=== PATIENT | female | born 2000 | race Caucasian/White ===

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

== ENCOUNTER 2021-06-12 18:25 | Outpatient (CLI) | payer MEDICAID, SELFPAY ==
[2021-06-12] VITALS (7 sets, daily range): BP systolic 125–148; BP diastolic 75–90; PULSE 52–84; TEMP 36.7; O2SAT 100; BMI 46.5
[2021-06-12] MEDS: Lactated Ringers 1,000 ML 999 ML IV (19:29)
[2021-06-12 19:42] LABS: Hematocrit 33.2 % (37-47); Hemoglobin 10.9 g/dL (12.0-15.0); Mean Corp Hgb Conc 32.8 g/dL (32-36); Mean Corpuscular Hgb 28.5 pg (27.0-32.0); Mean Corpuscular Volume 86.7 fL (81-99); Mean Platelet Vol. 11.1 fl (6.2-12.0); Platelet Count 217 K/mm3 (150-450); RBC Distribution Width SD 46.1 fl (35.1-43.9); Red Blood Count 3.83 M/mm3 (4.2-5.4); White Blood Count 11.8 K/mm3 (4.4-11.0)
[2021-06-12] MEDS: Acetaminophen 500 MG Tablet 1000 MG PO (19:43)
[2021-06-12 20:04] LABS: Protein, Urine (Random) 25.4 mg/dL (<11.9); Protein:Creat Ratio 149 mg/g CRE (0-200)
[2021-06-12 20:05] LABS: ALB/GLOB Ratio 0.5 RATIO (0.9-2.4); AST(SGOT) 8 U/L (15-37); Alanine Aminotransfer ALT/SGPT 12 U/L (13-56); Albumin, Serum 2.3 g/dL (3.2-5.0); Alkaline Phosphatase 166 U/L (45-117); Anion Gap 8 (5-15); BUN 7 mg/dL (7-18); BUN/Creat Ratio 16.7 RATIO (10-20); Calcium,Total 8.4 mg/dL (8.5-10.1); Chloride 110 mmol/L (98-107); Creatinine, Serum 0.42 mg/dL (0.55-1.02); EST Glomerular Filtration Rate 204 mL/min (>60); Est Glom Filt Rate - Afr Amer 247 mL/min (>60); Estimated Creatinine Clearance 176.75 ml/min; Globulin 4.2 g/dL (2.2-4.2); Glucose 75 mg/dL (74-106); Potassium 3.7 mmol/L (3.5-5.1); Protein, Total 6.5 g/dL (6.4-8.2); Sodium Level 137 mmol/L (136-145)
--- NOTE | 2021-06-12 20:24 | OB.TRI.NOTE ---
HPI - General HPI Narrative LISA MALDONADO, is a 21 F who presents for ELLISON and vision changes that she has had off and on for weeks. ELLISON is 4/10 and she has not taken anything for it. Vision changes have resolved. No RUQ pain or epigastric pain. No N/V. No ctx, vb, lof. Good FM. Maternal Data Information JOSR Calculator Estimated Delivery Date Method Current WG Current Estimate 06/30/21 LMP (Certain) 37w 3d PFSH PFSH Home Medications [id number] [] 1 tab PO DAILY 12/03/20 [History Last Taken 06/12/21 09:00] aspirin 81 mg PO DAILY 06/12/21 [History Last Taken 06/12/21 12:00] famotidine [Pepcid AC] 20 mg PO BID 06/12/21 [History Last Taken 06/12/21 12:00] Allergy/AdvReac Type Severity Reaction Status Date / Time No Known Allergies Allergy Verified 06/12/21 19:33 Social History (Updated 12/31/20 @ 23:[address] Leobardo Wellington, DO) Smoking Status: Current some day smoker tobacco type: e-cigarettes substance use type: does not use Physical Exam Const alert and no apparent distress General Appearance: comfortable Resp normal respiratory effort GI soft to palpation and non-tender Extremity Extremity Narrative: 2+ patellar reflexes NST FHR Rate Baby A Baseline: 140 Variability:: Moderate Accelerations:: 15 x 15 Decelerations:: None NST Reactive:: Yes FHR Category:: Category I Uterine Activity:: no ctx's Assessment & Plan (1) 37 weeks gestation of : PLAN: - ELLISON is mild and has been off and on for weeks. Tylenol given and fluid hydration with improvement - Vision changes have resolved - Pre e labs WNL - No concern for pre e at this time - BP's are normal but she did have 1 mild range BP - Discussed concern for developing gHTN and reasons to call - Will have office call her in 2 days to check in (2) Headache in :
== END 2021-06-12 23:59 | disposition home or self-care (01) ==
LOC: WPOUT 18:32 → WP 18:32
PROVIDERS: Visit Provider Obstetrics & Gynecology
DX: O99.333 Smoking (tobacco) complicating pregnancy, third trimester (principal); R51.9 Headache, unspecified; F17.290 Nicotine dependence, other tobacco product, uncomplicated; Z3A.37 37 weeks gestation of pregnancy
CPT/HCPCS: 96360; 59025; 59050; 80053; 82570; 84156; 85027; 99218; J7120; G0378

== ENCOUNTER 2021-06-23 13:30 | Outpatient (CLI) | payer MEDICAID, SELFPAY ==
[2021-06-23 13:34] VITALS: BMI 44.9
[2021-06-23 13:50] VITALS: BP 129/79; PULSE 101; TEMP 36.2
[2021-06-23 13:54] VITALS: PULSE 113; O2SAT 99
[2021-06-23 13:59] VITALS: PULSE 87; O2SAT 100
[2021-06-23 14:34] LABS: ROM Internal Control Test YES-OK TO RESULT pt. (Internal QC); ROM Patient Test Negative (Negative)
[2021-07-01] VITALS (21 sets, daily range): BP systolic 115–163; BP diastolic 67–103; PULSE 77–118; TEMP 36.1–36.2; O2SAT 90–100
--- NOTE | 2021-07-23 15:59 | OB.TRI.NOTE ---
HPI - General HPI Narrative LISA MALDONADO, is a 21 F who presents Maternal Data Information JOSR Calculator Estimated Delivery Date Method Current WG Current Estimate 06/30/21 LMP (Certain) 43w 2d Gestational age: 39 weeks [facility] Medical History (Updated 07/23/21 @ 15:[address] Felicia Toussaint MD) Anxiety Depression History of anxiety History of depression Obesity affecting Home Medications [id number]-[id number] [] 1 tab PO DAILY 12/03/20 [History Last Taken 1 Week Ago ~06/24/21] aspirin 81 mg PO DAILY 06/12/21 [History Last Taken 1 Week Ago ~06/24/21] famotidine [Pepcid AC] 20 mg PO BID 06/12/21 [History Last Taken 1 Week Ago ~06/24/21] Allergy/AdvReac Type Severity Reaction Status Date / Time No Known Allergies Allergy Verified 07/01/21 05:57 Social History (Updated 12/31/20 @ 23:[address] Leobardo Wellington, DO) Smoking Status: Current every day smoker tobacco type: e-cigarettes substance use type: does not use History Elective abortions Hx Para 0 Spontaneous abortions Hx # Term Pregnancies Ectopic pregnancies Hx # Pregnancies Multiple births # of living children Assessment & Plan (1) False labor: PLAN: NST on OB until with r/o labor No strip available to chart
== END 2021-06-23 23:59 | disposition home or self-care (01) ==
LOC: WPOUT 13:33 → WP 13:34
PROVIDERS: Visit Provider Obstetrics & Gynecology
DX: O99.344 Other mental disorders complicating childbirth (principal); O99.214 Obesity complicating childbirth; O47.1 False labor at or after 37 completed weeks of gestation; F41.8 Other specified anxiety disorders; Z3A.39 39 weeks gestation of pregnancy; O99.334 Smoking (tobacco) complicating childbirth; F17.290 Nicotine dependence, other tobacco product, uncomplicated; Z79.82 Long term (current) use of aspirin; Z79.899 Other long term (current) drug therapy
CPT/HCPCS: 59025; 59050; 84112; 99218; G0378

== ENCOUNTER 2021-07-01 06:00 | Inpatient (IN) | payer MEDICAID, SELFPAY ==
[2021-07-01] VITALS (26 sets, daily range): BP systolic 102–138; BP diastolic 59–93; PULSE 77–110; RESP 16–18; TEMP 35.7–36.6; O2SAT 97–100; BMI 44.9
--- NOTE | 2021-07-01 06:06 | PCM.HP.OB ---
HPI - General HPI Narrative LISA MALDONADO, is a 21 F at 40.1 weeks gestation who presents to triage with contractions. She started having contractions yesterday and feels that have gotten closer together and more painful. Denies any loss of fluid or vaginal bleeding. Positive movement. complicated by Covid -19 positive (1st trimester), obesity, anemia and GBS positive status. She has a history of anxiety and depression. Maternal Data Information JOSR Calculator Estimated Delivery Date Method Current WG Current Estimate 06/30/21 LMP (Certain) 40w 1d PFSH PFSH Home Medications [id number] [] 1 tab PO DAILY 12/03/20 [History Last Taken 1 Week Ago ~06/24/21] aspirin 81 mg PO DAILY 06/12/21 [History Last Taken 1 Week Ago ~06/24/21] famotidine [Pepcid AC] 20 mg PO BID 06/12/21 [History Last Taken 1 Week Ago ~06/24/21] Allergy/AdvReac Type Severity Reaction Status Date / Time No Known Allergies Allergy Verified 07/01/21 05:57 Social History (Updated 12/31/20 @ 23:[address] Leobardo Wellington, DO) Smoking Status: Current some day smoker tobacco type: e-cigarettes substance use type: does not use NST FHR Rate Baby A Baseline: 130 Variability:: Moderate Accelerations:: 15 x 15 Decelerations:: None FHR Category:: Category I Uterine Activity:: TOCO- 2-3 min ROS Eyes Eyes: Denies blurry vision, change in vision or spots in vision ENT HEENT: Denies dizziness or headache(s) Cardiovascular Cardiovascular: Denies abdominal pain, chest pain or dyspnea Respiratory/Chest Respiratory/Chest: Denies cough, dyspnea, shortness of breath at rest or shortness of breath with exertion Gastrointestinal Gastrointestinal: Denies abdominal pain, diarrhea or vomiting Genitourinary Genitourinary: Denies change in urinary stream, difficulty urinating or dysuria Musculoskeletal Musculoskeletal: Reports none Integumentary Integumentary: Denies rash Neurologic Neurologic: Denies dizziness, headache(s), memory loss or weakness Psychiatric Psychiatric: Reports none Vital Signs Vital Signs Vital Signs: Weight Weight: 261 lb 6.4 oz Body Mass Index (BMI) 44.9 Physical Exam Const alert, oriented x3 and no apparent distress General Appearance: cooperative Orientation / Consciousness: awake Exam Limitations: no limitations HEENT normocephalic Head and Scalp: normal to inspection Eyes General Eye: normal appearance of both eyes Neck full ROM and no lymphadenopathy Lymph Lymphatic: no lymphadenopathy noted Chest inspection of chest normal Resp normal respiratory effort, normal air movement and clear to auscultation bilaterally Effort and Inspection: able to speak in complete sentences and symmetric chest movement Cardio regular rate and regular rhythm GI normal to inspection, nondistended, normoactive bowel sounds Manual OB Exam: dilated 4, effaced 90 and station -1 Back/Spine normal ROM Extremity full ROM and no calf tenderness Skin no rashes or lesions noted General Skin Exam: no breakdown Neuro oriented x3 and CN's II-XII intact bilaterally Psych mental status grossly normal and thought process normal Labs Labs Labs: Hct 33.2 % (37-47) L Hgb 10.9 g/dL (12.0-15.0) L A+ Rubella- immune HB- neg HC- neg RPR- NR HIV- NR GC/CH- neg GBS positive Assessment & Plan (1) 40 weeks gestation of : (2) Spontaneous onset of labor: (3) Anemia affecting : QUALIFIERS: Trimester: second trimester Qualified Code(s): O99.012 - Anemia complicating , second trimester (4) Obesity affecting : QUALIFIERS: Trimester: unspecified trimester Qualified Code(s): O99.210 - Obesity complicating , unspecified trimester (5) History of depression: (6) History of anxiety: (7) Positive GBS test: PLAN: CE /-1 Admit to labor and delivery Routine labs GBS positive- Start IV and start PCN 5 million units IV x 1 then PCN 3 million units IV every 4 hours until delivery Epidural when indicated Dr. Jurado notified and is collaborating physician
[2021-07-01] MEDS: Lactated Ringers 500 ML 999 ML IV ×2 (06:29→11:00)
[2021-07-01 06:56] LABS: Absolute Lymphocyte Count 2.35 X10^3/uL (0.83-4.51); Absolute Neutrophil Count 8.7 X10^3/uL (2.0-7.7); Basophil# 0.04 X10^3/uL; Basophil% 0.3 % (0-1); Eosinophil# 0.12 X10^3/uL; Hematocrit 36.2 % (37-47); Hemoglobin 12.1 g/dL (12.0-15.0); Lymphocyte # 2.35 X10^3/ul (0.83-4.51); Lymphocyte % 19.9 % (19-41); Mean Corp Hgb Conc 33.4 g/dL (32-36); Mean Corpuscular Hgb 28.2 pg (27.0-32.0); Mean Corpuscular Volume 84.4 fL (81-99); Monocyte# 0.56 X10^3/uL; Monocyte% 4.7 % (0-10); NRBC Flagged by Analyzer 0 % (0-5); Neutrophil # 8.69 X10^3/uL (2.7-7.7); Neutrophil % 73.7 % (47-70); Platelet Count 250 K/mm3 (150-450); RBC Distribution Width CV 15.7 % (11.6-14.6); Red Blood Count 4.29 M/mm3 (4.2-5.4); White Blood Count 11.8 K/mm3 (4.4-11.0)
[2021-07-01] MEDS: Lactated Ringers 1,000 ML 200 ML IV (07:00)
[2021-07-01] MEDS: fentaNYL-bupivacaine (epidural) 100 ML BAG EPIDURAL (07:50)
--- NOTE | 2021-07-01 08:33 | PCM.PN.OB ---
Subjective Subjective Comfortable in bed with epidural. FOB at bedside. Objective Data Objective Data Vital Signs: Weight: 261 lb 6.4 oz Body Mass Index (BMI) 44.9 Intake & Output: Intake and Output for Last 24 Hours 06/29/21 06/30/21 07/01/21 23:59 23:59 23:59 Intake Total 605 / 605 Balance 605 / 605 Lab / Micro Data Result Diagrams: 07/01/21 06:29 Labs: Laboratory Results - last 24 hr 07/01/21 06:29: WBC 11.8 H, RBC 4.29, Hgb 12.1, Hct 36.2 L, MCV 84.4, MCH 28.2, MCHC 33.4, RDW Std Deviation 48.0 H, RDW Coeff of Sully 15.7 H, Plt Count 250, MPV 11.0, Immature Gran % (Auto) 0.400, Neut % (Auto) 73.7 H, Lymph % (Auto) 19.9, [place] % (Auto) 4.7, Eos % (Auto) 1.0, Baso % (Auto) 0.3, Absolute Neuts (auto) 8.7 H, Absolute Lymphs (auto) 2.35, Nucleated RBC % 0 07/01/21 06:29: Blood Type A POSITIVE, Antibody Screen NEGATIVE Micro: Microbiology 07/01/21 06:15 Nasal Secretion SARS-CoV-2 Antigen (Rapid) - Final Physical Exam Manual OB Exam: dilated 4cm, effaced 80%, station -1 and other vertex presentation. AROM for moderate amount of meconium stained fluid. IUPC placed and tolerated well. NST FHR Rate Baby A Baseline: 135 Variability:: Moderate Accelerations:: 15 x 15 Decelerations:: None FHR Category:: Category I Uterine Activity:: Unable to see on monitor and difficult to palpate due to body habitus Assessment & Plan (1) Positive GBS test: (2) History of anxiety: (3) History of depression: (4) Obesity affecting : QUALIFIERS: Trimester: unspecified trimester Qualified Code(s): O99.210 - Obesity complicating , unspecified trimester (5) Anemia affecting : QUALIFIERS: Trimester: second trimester Qualified Code(s): O99.012 - Anemia complicating , second trimester (6) Spontaneous onset of labor: (7) 40 weeks gestation of : (8) Elevated blood pressure affecting , antepartum: PLAN: 1) Category 1 FHT 2) Epidural for pain management 3) Unable to palpate contractions, AROM and IUPC placed after patient consent. Will reevaluate in an hour if good labor pattern. If not, discussed pitocin augmentation. 4) Positional changes 5) collaborative physician and notified of patient status.
[2021-07-01] MEDS: Oxytocin 30 units/NS 500 ml 30 UNITS/500 ML IV.SOLN IV (09:42)
[2021-07-01 09:44] LABS: ALB/GLOB Ratio 0.6 RATIO (0.9-2.4); AST(SGOT) 11 U/L (15-37); Alanine Aminotransfer ALT/SGPT 10 U/L (13-56); Albumin, Serum 2.4 g/dL (3.2-5.0); Alkaline Phosphatase 184 U/L (45-117); Anion Gap 7 (5-15); BUN 10 mg/dL (7-18); BUN/Creat Ratio 17.5 RATIO (10-20); Calcium,Total 8.4 mg/dL (8.5-10.1); Chloride 109 mmol/L (98-107); Creatinine, Serum 0.57 mg/dL (0.55-1.02); EST Glomerular Filtration Rate 143 mL/min (>60); Est Glom Filt Rate - Afr Amer 173 mL/min (>60); Estimated Creatinine Clearance 135.95 ml/min; Globulin 4.2 g/dL (2.2-4.2); Glucose 76 mg/dL (74-106); Protein, Total 6.6 g/dL (6.4-8.2); Sodium Level 137 mmol/L (136-145); Uric Acid 4.3 mg/dL (2.6-6.0)
[2021-07-01 09:48] LABS: Protein, Urine (Random) 27.2 mg/dL (<11.9); Protein:Creat Ratio 231 mg/g CRE (0-200)
[2021-07-01] MEDS: Penicillin G 3,000,000 Units 50 ML 100 UNITS IV (10:38)
[2021-07-01] MEDS: Oxytocin 30 units/NS 500 ml 30 UNITS/500 ML IV.SOLN 334 UNITS IV (12:16)
--- NOTE | 2021-07-01 12:34 | OP.PCM_ITS ---
Maternal Data Information JOSR Calculator Estimated Delivery Date Method Current WG Current Estimate 06/30/21 LMP (Certain) 40w 1d Vaginal Delivery Maternal Presentation Maternal Presentation: Active Labor Operative Information Date of Procedure: 07/01/21 Pre-Operative Diagnosis: Active Labor Post-Operative Diagnosis: Surgery / Procedure Performed: Spontaneous Vaginal Delivery Type of Anesthesia: Epidural Estimated Blood Loss: 500 ml Time of Delivery: 12:12 Findings Description of Procedure: Progressed to complete with strong urge to push. Epidural for pain management. Respiratory and superintendent operations division called to delivery for meconium stained fluid. of viable male infant over 1st degree perineal laceration. APGARS 8,9. head delivered with body immediately forthcoming. CANx1 and delivered through. Mouth and nares suctioned for secretions. Placed on maternal abdomen, strong cry. Pitocin started for active 3rd stage management. Cord clamped and cut after pulsations ceased. placed on warmer for evaluation by superintendent operations division. Placenta delivered intact with 3 vessel cord. Perineum inspected and revealed first degree perineal laceration. Repaired with epidural analgesia and 3.0 vicryl rapide. Fundus firm, hemostasis achieved. Mom and baby stable, family bonding well. Planning to bottle feed. notified of patient delivery. Presentation: Vertex and BUSHRA Amniotic Membrane Rupture Type: Artificial Amniotic Fluid Description: Thick meconium Placental Delivery Description: Spontaneous Placenta Disposition: [facility] Cord Vessel Description: 3 Vessels Cord Entanglement: None and Around neck x 1, loose Nuchal Cord Compression: Without compression Infant A Gender: Male (1 minute): 8 (5 minute): 9 Delayed Cord Clamping: Yes Post Vaginal Delivery Medications Given After Delivery: IV Pitocin Laceration: 1st degree Complication Complications: None
--- NOTE | 2021-07-01 15:37 | NURSING ---
1500 report received from bozena rn; assessment done; pt up oob up to chair pt gait steady; pt moved to room 3
--- NOTE | 2021-07-01 18:12 | NURSING ---
1750 pt up to try and void; pt unable to void; pt encouraged to drink water and will try again at 18:30; pt denies urge to void
[2021-07-02 03:51] VITALS: BP 111/60; PULSE 97; RESP 18; TEMP 36.6; O2SAT 97
[2021-07-02] MEDS: Acetaminophen 500 MG Tablet 1000 MG PO (03:51)
[2021-07-02 06:16] LABS: Hematocrit 30.3 % (37-47); Mean Corpuscular Volume 87.8 fL (81-99); Platelet Count 180 K/mm3 (150-450); RBC Distribution Width CV 15.9 % (11.6-14.6); RBC Distribution Width SD 50.9 fl (35.1-43.9); Red Blood Count 3.45 M/mm3 (4.2-5.4)
[2021-07-02 08:45] VITALS: BP 104/56; PULSE 81; RESP 16; TEMP 36.1
--- NOTE | 2021-07-02 13:22 | PCM.PN.OB ---
Subjective Subjective Denies complaints Objective Data Objective Data Vital Signs: Vital Signs Temp Pulse Resp BP Pulse Ox 97 F L 81 16 104/56 L 97 07/02/21 08:45 07/02/21 08:45 07/02/21 08:45 07/02/21 08:45 07/02/21 03:51 Oxygen Delivery Method Room Air Weight: 261 lb 6.4 oz Body Mass Index (BMI) 44.9 Intake & Output: Intake and Output for Last 24 Hours 06/30/21 07/01/21 07/02/21 23:59 23:59 23:59 Intake Total 2608.89 / 2608.89 Output Total 600 / 600 Balance / Lab / Micro Data Result Diagrams: 07/02/21 06:00 07/01/21 08:55 Labs: Laboratory Results - last 24 hr 07/02/21 06:00: WBC 13.0 H, RBC 3.45 L, Hgb 10.0 L, Hct 30.3 L, MCV 87.8, MCH 29.0, MCHC 33.0, RDW Std Deviation 50.9 H, RDW Coeff of Sully 15.9 H, Plt Count 180, MPV 11.0 Micro: Microbiology 07/01/21 06:15 Nasal Secretion SARS-CoV-2 Antigen (Rapid) - Final Physical Exam Const alert, oriented x3 and no apparent distress HEENT normocephalic GI soft to palpation, non-tender and non-distended GI Narrative: fundus firm, mid & below umbilicus Extremity normal to inspection and no calf tenderness Assessment & Plan (1) 40 weeks gestation of : COMMENT: PPD#1 PLAN: Routine care
--- NOTE | 2021-07-02 13:26 | PCM.DC ---
Discharge Instructions Diet Discharge Diet: No restrictions Activity Discharge Activity: May Shower May resume sexual activity in: 6 weeks Weight Bearing Status: Weight bearing as tolerated Dressing / Incision Call your doctor if you observe: Fever of 101 or Higher, Coldness, Increased Pain, Change in Color, Inability to urinate, Inability to have a bowel movement, Using more than 1 pad per hour, Shortness of breath, Dizziness, Fainting spells, Chest pain, Increased palpitations (irregular heartbeat), Calf discomfort and Uncontrolled pain Follow Up Care Please Follow Up With: Felicia Toussaint MD When: Follow up in 1 and 6 weeks for visits. Test Results: Test results from this visit will be discussed in further detail at your follow-up appointment, if applicable. Discharge Plan Admission Admit Date/Time: 07/01/21 06:00 Primary Reason for Your Visit: Vaginal delivery Attending Provider: Nat Moore Primary Care Provider: Care Physician,Katherine Primary Discharge Orders/Prescriptions Prescriptions: No Action 1 mg Tablet 1 tab PO DAILY RF: 0 famotidine [Pepcid AC] 20 mg Tablet 20 mg PO BID RF: 0 aspirin 81 mg Capsule 81 mg PO DAILY RF: 0 Referrals / Follow Up: Care Physician,No Primary [Primary Care Provider] - Disposition Disposition (needs filled in before D/C Order can be placed): Home, Self Care
[2021-07-02 15:49] VITALS: BP 138/88; PULSE 88; RESP 16; TEMP 36.1
== END 2021-07-02 16:08 | disposition home or self-care (01) | DRG 560 ==
LOC: WPOUT 06:08 → WP 06:08
PROVIDERS: Advanced Practice Midwife; Admitting Provider Advanced Practice Midwife; Referring Provider Advanced Practice Midwife; Visit Provider Advanced Practice Midwife
DX: O99.02 Anemia complicating childbirth (principal); Z37.0 Single live birth; E66.9 Obesity, unspecified; F17.290 Nicotine dependence, other tobacco product, uncomplicated; O77.0 Labor and delivery complicated by meconium in amniotic fluid; O99.214 Obesity complicating childbirth; O99.824 Streptococcus B carrier state complicating childbirth; O99.334 Smoking (tobacco) complicating childbirth; O69.81X0 Labor and delivery complicated by cord around neck, without compression, not applicable or unspecified; O70.0 First degree perineal laceration during delivery; Z3A.40 40 weeks gestation of pregnancy; Z79.82 Long term (current) use of aspirin; Z86.16 Personal history of COVID-19
CPT/HCPCS: 59025; 59050; 80053; 82570; 84156; 84550; 85025; 85027; 86850; 86900; 86901; 87426; 99218; 99406; J7120; G0378

== ENCOUNTER 2022-11-05 09:20 | Inpatient (IN) | payer MEDICAID, SELFPAY ==
[2022-11-05] VITALS (43 sets, daily range): BP systolic 85–139; BP diastolic 47–95; PULSE 30–113; RESP 20; TEMP 36.1–37.2; O2SAT 81–100; BMI 45.9
[2022-11-05] MEDS: Lactated Ringers 1,000 ML 50 ML IV (10:18)
[2022-11-05 10:25] LABS: Absolute Lymphocyte Count 1.83 X10^3/uL (0.83-4.51); Absolute Neutrophil Count 11.1 X10^3/uL (2.0-7.7); Basophil# 0.04 X10^3/uL; Basophil% 0.3 % (0-1); Eosinophil# 0.11 X10^3/uL; Eosinophils% 0.8 % (0-5); Hematocrit 35.4 % (37-47); Hemoglobin 11.1 g/dL (12.0-15.0); Lymphocyte # 1.83 X10^3/ul (0.83-4.51); Lymphocyte % 13.3 % (19-41); Mean Corp Hgb Conc 31.4 g/dL (32-36); Mean Corpuscular Hgb 27.3 pg (27.0-32.0); Mean Corpuscular Volume 87.2 fL (81-99); Mean Platelet Vol. 10.9 fl (6.2-12.0); Monocyte# 0.59 X10^3/uL; Monocyte% 4.3 % (0-10); NRBC Flagged by Analyzer 0 % (0-5); Neutrophil # 11.08 X10^3/uL (2.7-7.7); Neutrophil % 80.9 % (47-70); Platelet Count 275 K/mm3 (150-450); RBC Distribution Width CV 14.1 % (11.6-14.6); Red Blood Count 4.06 M/mm3 (4.2-5.4); White Blood Count 13.7 K/mm3 (4.4-11.0)
[2022-11-05 10:58] LABS: Syphilis Antibodies Non-reactive
[2022-11-05] MEDS: Oxytocin 15 Units/NS 250ml 15 UNITS/250 ML IV.SOLN 2 UNITS IV (11:20)
[2022-11-05] MEDS: LACTATED RINGERS 500 ML 999 ML IV (12:55)
--- NOTE | 2022-11-05 12:55 | PCM.HP.OB ---
HPI - General General Date of Admission: 11/05/22 HPI Narrative LISA MALDONADO, is a 22 F at 39 weeks who presents for scheduled induction of labor for obesity. BMI 40. Maternal Data Information JOSR Calculator Estimated Delivery Date Method Current WG Current Estimate 11/12/22 Manual 39w 0d Other Estimates 06/30/21 LMP (Certain) 110w 3d PFSH PFSH Medical History (Updated 11/05/22 @ 12:58 by Anais Aldrich CNM) Anxiety Depression History of anxiety History of depression Obesity affecting Home Medications [id number]-[id number]-[id number] 1 mg tablet 1 tab PO DAILY 12/03/20 [History Last Taken 1 Week Ago ~06/24/21] aspirin 81 mg capsule 81 mg PO DAILY covid in 06/12/21 [History Last Taken 11/04/22 08:00 81 mg] famotidine 20 mg tablet (Pepcid AC) 20 mg PO BID heartburn 06/12/21 [History Last Taken 11/03/22 20:00 20 mg] buspirone 10 mg tablet 10 mg PO DAILY depression 11/05/22 [History Last Taken 11/04/22 08:00 10 mg] Allergy/AdvReac Type Severity Reaction Status Date / Time No Known Allergies Allergy Verified 11/05/22 09:32 Social History (Updated 12/31/20 @ 23:[address] Leobardo Wellington, DO) Smoking Status: Current every day smoker tobacco type: e-cigarettes substance use type: does not use History Elective abortions Hx Para 1 Spontaneous abortions Hx # Term Pregnancies Ectopic pregnancies Hx # Pregnancies Multiple births # of living children ROS Eyes Eyes: Denies blurry vision, change in vision or spots in vision ENT HEENT: Denies dizziness or headache(s) Cardiovascular Cardiovascular: Denies abdominal pain, chest pain or dyspnea Respiratory/Chest Respiratory/Chest: Denies cough, dyspnea, shortness of breath at rest or shortness of breath with exertion Gastrointestinal Gastrointestinal: Denies abdominal pain, diarrhea or vomiting Genitourinary Genitourinary: Denies change in urinary stream, difficulty urinating or dysuria Musculoskeletal Musculoskeletal: Reports none Integumentary Integumentary: Denies rash Neurologic Neurologic: Denies dizziness, headache(s), memory loss or weakness Psychiatric Psychiatric: Reports none Vital Signs Vital Signs Vital Signs: 11/05/22 09:49 11/05/22 09:49 11/05/22 09:46 Temperature Temperature Source Temporal Pulse Rate 86 Blood Pressure 118/71 BP Systolic 118 BP Diastolic 71 11/05/22 09:46 11/05/22 10:53 11/05/22 10:53 Temperature 97.4 F L Temperature Source Pulse Rate 75 Blood Pressure 119/62 BP Systolic 119 BP Diastolic 62 11/05/22 10:53 11/05/22 10:53 11/05/22 11:59 Temperature 97.0 F L Temperature Source Temporal Pulse Rate Blood Pressure 113/65 BP Systolic 113 BP Diastolic 65 11/05/22 11:59 11/05/22 11:58 11/05/22 11:58 Temperature 97.1 F L Temperature Source Temporal Pulse Rate 93 Blood Pressure BP Systolic BP Diastolic Weight Weight: 267 lb 13.786 oz Body Mass Index (BMI) 45.9 Physical Exam Const alert, oriented x3 and no apparent distress General Appearance: cooperative Orientation / Consciousness: awake Exam Limitations: no limitations HEENT normocephalic Head and Scalp: normal to inspection Eyes General Eye: normal appearance of both eyes Neck full ROM and no lymphadenopathy Lymph Lymphatic: no lymphadenopathy noted Chest inspection of chest normal Resp normal respiratory effort, normal air movement and clear to auscultation bilaterally Effort and Inspection: able to speak in complete sentences and symmetric chest movement Cardio regular rate and regular rhythm GI normal to inspection, nondistended, normoactive bowel sounds Manual OB Exam: presentation cephalic and dilated 4 Amniotic Fluid: clear amniotic fluid Back/Spine normal ROM Extremity full ROM and no calf tenderness Skin no rashes or lesions noted General Skin Exam: no breakdown Neuro oriented x3 and CN's II-XII intact bilaterally Psych mental status grossly normal and thought process normal Labs Labs Labs: Blood Type A POSITIVE Antibody Screen NEGATIVE Hct 35.4 % (37-47) L Hgb 11.1 g/dL (12.0-15.0) L Syphilis Total Ab Non-reactive GBS negative Assessment & Plan (1) 39 weeks gestation of : (2) Encounter for induction of labor: (3) Generalized anxiety disorder: PLAN: Plan Admit to labor and delivery Routine labs GBS negative CE /-2 AROM for clear fluid Start Pitocin at 2 mu/min and increase per policy Epidural when indicated Dr. Garcia notified of admission and is collaborating physician
[2022-11-05] MEDS: fentaNYL-bupivacaine (epidural) 100 ML BAG EPIDURAL (14:50)
[2022-11-05] MEDS: Oxytocin 15 Units/NS 250ml 15 UNITS/250 ML IV.SOLN 83 UNITS IV (18:38)
--- NOTE | 2022-11-05 18:40 | EX.PCM.OBRPT ---
Assessment & Plan (1) (spontaneous vaginal delivery): (2) Generalized anxiety disorder: (3) Depression: COMMENT: diagnosed 2018 (4) Obesity affecting : QUALIFIERS: Trimester: unspecified trimester Qualified Code(s): O99.210 - Obesity complicating , unspecified trimester Maternal Data Information JOSR Calculator Estimated Delivery Date Method Current WG Current Estimate 11/12/22 Manual 39w 0d Other Estimates 06/30/21 LMP (Certain) 110w 3d Vaginal Delivery Maternal Presentation Maternal Presentation: Medically Indicated Induction Maternal Presentation: at 39.0 weeks gestation that presented for induction of labor for obesity. Type of Induction: Pitocin and Amniotomy Medical Reason for Induction: - (Obesity- BMI 40) Operative Information Date of Procedure: 11/05/22 Pre-Operative Diagnosis: Term gestation, Induction of labor Post-Operative Diagnosis: , live male infant Surgery / Procedure Performed: Spontaneous Vaginal Delivery Type of Anesthesia: Epidural Drain: Cunningham to straight drain Estimated Blood Loss: 150 Time of Delivery: 18:05 Findings Description of Procedure: Called to patient's room for feeling pressure. Complete dilation and +1 station. With minimal maternal effort, head delivered followed by anterior shoulder and remainder of infant body without downward traction. Loose nuchal cord reduced. Vigorous male placed on maternal abdomen and was attended to by nursing staff. Pitocin IV started for active management of the third stage of labor. 3 vessel cord clamped and cut by FOB. Placenta delivered spontaneously and intact. Vagina and perineum intact. Fundus firm 2 below U. Vaginal sweep completed by me. EBL 150 cc. APGARS 8/9. Patient and infant bonding well at this time. Dr. Garcia notified of delivery. Presentation: Vertex and CHAMP Amniotic Membrane Rupture Type: Artificial Time of Membrane Rupture: 1250 Amniotic Fluid Description: Clear Placental Delivery Description: Spontaneous Placenta Disposition: [facility] Cord Vessel Description: 3 Vessels Cord Entanglement: Around neck x 1, loose (Around body x 1 loose) Nuchal Cord Compression: Without compression Infant A Gender: Male (1 minute): 8 (5 minute): 9 Delayed Cord Clamping: Yes Post Vaginal Delivery Medications Given After Delivery: IV Pitocin Episiotomy Description: None Laceration: None Complication Complications: None
[2022-11-05] MEDS: busPIRone 5 MG Tablet 10 MG PO (21:45)
[2022-11-05] MEDS: Famotidine 20 MG Tablet PO (21:45)
[2022-11-05] MEDS: 0.9% Saline Lock 10 ML Syringe IV (21:47)
[2022-11-06] MEDS: Acetaminophen 500 MG Tablet 1000 MG PO ×3 (02:34→18:26)
[2022-11-06 03:29] VITALS: BP 101/44; PULSE 103; RESP 18; TEMP 36.7; O2SAT 98
--- NOTE | 2022-11-06 07:10 | NURSING ---
report given to Bimal Hammer RN and Randi Rm RN who are assuming care of pt at this time
[2022-11-06 08:26] VITALS: BP 111/65; PULSE 89; RESP 16; TEMP 36.3; O2SAT 96
--- NOTE | 2022-11-06 08:38 | NURSING ---
patient reports she fell while in the shower while in september. patient states she slipped on her bath mat.
[2022-11-06] MEDS: Famotidine 20 MG Tablet PO ×2 (10:14→22:34)
[2022-11-06] MEDS: busPIRone 5 MG Tablet 10 MG PO ×2 (10:14→22:34)
[2022-11-06 11:56] VITALS: BP 106/61; PULSE 94; RESP 16; TEMP 36.2; O2SAT 97
[2022-11-06] MEDS: Prenatal Vits Tablet 1 TABLET PO (11:58)
--- NOTE | 2022-11-06 13:02 | PCM.PN.OB ---
Subjective Subjective Denies complaints Objective Data Objective Data Vital Signs: Vital Signs Temp Pulse Resp BP Pulse Ox O2 Del Method 97.2 F L 94 16 106/61 97 Room Air 11/06/22 11:56 11/06/22 11:56 11/06/22 11:56 11/06/22 11:56 11/06/22 11:56 11/06/22 11:56 Oxygen Delivery Method Room Air Weight: 267 lb 13.786 oz Body Mass Index (BMI) 45.9 Intake & Output: Intake and Output for Last 24 Hours 11/04/22 11/05/22 11/06/22 23:59 23:59 23:59 Intake Total 1387.84 / 1387.84 Output Total 650 / 650 550 / 550 Balance 737.84 / 737.84 -550 / -550 Lab / Micro Data 11/05/22 10:10 Physical Exam Const alert, oriented x3 and no apparent distress HEENT normocephalic GI soft to palpation, non-tender and non-distended GI Narrative: fundus firm, mid & below umbilicus Extremity normal to inspection and no calf tenderness Assessment & Plan (1) (spontaneous vaginal delivery): COMMENT: PPD#1 PLAN: Plan Routine care
[2022-11-06 16:03] VITALS: BP 110/78; PULSE 99; RESP 16; TEMP 36.2; O2SAT 98
[2022-11-06 19:58] VITALS: BP 120/73; PULSE 98; RESP 18; TEMP 36.3; O2SAT 98
[2022-11-07 02:50] VITALS: BP 122/78; PULSE 98; RESP 16; TEMP 36.1; O2SAT 97
[2022-11-07] MEDS: Acetaminophen 500 MG Tablet 1000 MG PO ×2 (02:57→13:01)
--- NOTE | 2022-11-07 07:40 | PCM.PROGNOTE ---
Subjective Subjective patient seen at bedside, doing well. Patient reports good pain control. lochia mild. Objective Data Objective Data Vital Signs: Vital Signs Temp Pulse Resp BP Pulse Ox O2 Del Method 97.0 F L 98 16 122/78 H 97 Room Air 11/07/22 02:50 11/07/22 02:50 11/07/22 02:50 11/07/22 02:50 11/07/22 02:50 11/07/22 02:50 Oxygen Delivery Method Room Air Weight: 121.5 kg Body Mass Index (BMI) 45.9 Intake & Output: Intake and Output for Last 24 Hours 11/05/22 11/06/22 11/07/22 23:59 23:59 23:59 Intake Total 1387.84 / 1387.84 Output Total 650 / 650 550 / 550 Balance 737.84 / 737.84 -550 / -550 Lab / Micro Data 11/05/22 10:10 Physical Exam Narrative abd: soft, fundus firm. Const alert and oriented x3 General Appearance: cooperative HEENT normocephalic Neck General: normal visual inspection GI soft to palpation and non-distended GI Narrative: Fundus firm Extremity normal to inspection and no calf tenderness Skin no rashes or lesions noted Neuro oriented x3 and CN's II-XII intact bilaterally Psych mental status grossly normal Assessment & Plan Assessment/Plan (1) Obesity affecting : QUALIFIERS: Trimester: unspecified trimester Qualified Code(s): O99.210 - Obesity complicating , unspecified trimester (2) Depression: (3) (spontaneous vaginal delivery): PLAN: Plan PPD#2, doing well routine care dc home
--- NOTE | 2022-11-07 07:41 | PCM.DC ---
Discharge Instructions Diet Discharge Diet: No restrictions Activity May resume sexual activity in: 6-8 weeks Dressing / Incision Call your doctor if you observe: Fever of 101 or Higher, Inability to urinate, Using more than 1 pad per hour and Uncontrolled pain Follow Up Care Please Follow Up With: Ely Wetzel MD When: 1-2 weeks post and again at 6 weeks post . [phone] Test Results: Test results from this visit will be discussed in further detail at your follow-up appointment, if applicable. Discharge Plan Admission Admit Date/Time: 11/05/22 09:20 Attending Provider: Anais Aldrich Primary Care Provider: Nat Ku Discharge Orders/Prescriptions Prescriptions: New acetaminophen 500 mg Tablet 1,000 mg PO Q6H PRN PRN (Reason: Pain 1-10 Or Fever) Qty: 0 0RF naproxen 500 mg Tablet 500 mg PO Q8H PRN PRN (Reason: Pain Score 1-3) Qty: 0 0RF Continued giglkajy-bqr-Iu-FA 1 mg Tablet 1 tab PO DAILY buspirone 10 mg tablet 10 mg PO DAILY Discontinued famotidine [Pepcid AC] 20 mg Tablet 20 mg PO BID Patient Comments: takes once per day aspirin 81 mg Capsule 81 mg PO DAILY Referrals / Follow Up: Nat Ku, [employer] [Primary Care Provider] - Disposition Disposition (needs filled in before D/C Order can be placed): Home, Self Care
--- NOTE | 2022-11-07 08:18 | CASEMGMT ---
Social Work Assessment Labor and Delivery Unit Patient Address:[address] [place] [address] [address], [place] [address] Phone number: [phone] Date of Referral: 11/05/22 Time of Referral:? [id number] Referred By: Anais Aldrich Date of Intervention: ??11/06/22 Time of Intervention:? 1910 Reason for Referral:? other Sw informed by nursing staff that mother of baby has mental health hisory positive for anxiety and depression. Sw completed chart review. Presented to bedside and introduced self to MOB and explained reason for sw involvement. Sw completed psychosocial assessment and provided MOB with information regarding resources and education on depression. History obtained from: medical records and mother of baby (MOB- Rosalind)? Household composition: Currently residing in the home is MOB, father of baby (FOB- Don) and FIDEL's older son Liam (15 months old). MOB reports that her mother, maternal grandma will also be living with them temporarily to help with the new baby. Patient's parent/guardian status:?MOB states that she and FORyley have known each other for a long time. They dated roughly two years ago but MOB called things off. MOB states that she got COVID and was in the hospital and found out that she was with Liam. At that time FOB reached out to her to see how she was doing and they started seeing each other again. MOB states that her first son is with a different dad, but FORyley has stepped in and raised him like his own. MOB states that she and FOB are now engaged. MOB denies concerns regarding abuse or domestic violence. Medical History: This is FIDEL's second and delivery. She received [facility] with [facility]. MOB delivered baby boy, Don Ledesma Daniela on 11/05/22 via vaginal delivery. Baby was born weighing 6lb and 8oz, his apgars were 8 and 9. MOB states that she is attempting to breastfeed, she thinks that she is going to exclusively pump and use bottles. MOB reports to having a pump. Educational Status:?MOB states that both parents graduated from high school, denies college education. MOB denies any learning difficulties in school. Financial Status: FORyley is currently employed at a factory. He just started working there and is not able to take time off or receive FMLA. 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. FIDEL states that she loves what she does and she is already looking forward to return following her 6 week maternity leave. Supplies: FIDEL reports that she has everything that she needs for baby, including a safe sleep space, car seat, clothes, diapers and wipes. FIDEL states that she is already connected to [employer] and they have assisted her in obtaining several things prior to the baby being born. ? Childcare/Caregiver(s):? FIDEL reports that when she and KARLOS are both at work her mother, maternal grandma will be able to help with childcare. Transportation:?? Both parents have working and reliable transportation. No transportation barriers at this time. Programs/Agencies Involved: ?FIDEL is connected with services through [employer] including insurance, food stamps and WIC. FIDEL reports that she is also already connected to [facility] [employer] and they have been a helpful resource to her after her first son was born and throughout this . ?? Children Services/Legal Issues:??? FIDEL denies children services involvement. No concerns at this time warranting referral. Behavioral Health Issues: ??Mental Health History: FIDEL states that KARLOS has been diagnosed with anxiety and depression. He does not take any medications. FIDEL has been diagnoed with anxiety and depression. She disclosed that she struggled with depression following the of her first son. FIDEL states her symptoms at that time was that she would worry a lot, and felt like she was too young to be having a baby, so she had a lot of self doubt regarding her ability to be a good mom. Becki provided support and discussed signs and symptoms of baby blues and depression. Becki explained to FIDEL that she is more susceptible to experiencing one or both due to her mental health history. FIDEL states that she trailed several medications to see what would help her manage her mental health symptoms, and is now taking Buspar. FIDEL states that she is connected to a psychiatrist that she touches base with monthly. Becki completed [place] Depression screen with FIDEL. Her score was a 7. Becki explained her score to her and encouraged FIDEL to remain connected to the mental health supports that she has in place at this time. Becki encouraged FIDEL to get connected with a mental health therapist that may be able to support her during this period. Becki provided FIDEL with list of counseling agencies for [place]. ??? Substance Use History:??MOB denies substance use aside from vaping. Becki discussed second hand smoke with MOB. Sw told MOB that if she is going to continue to vape make sure it is done outside of the home, and to change clothes before holding baby. MOB expressed understanding. Family History: MOB states that her mom does have a history of substance use. MOB states that her mom was incarcerated a year ago (she does not know what for) and is active with Probation and has to drop urine one time a week. Sw discussed this concern with MOB due to MOB identifying that her mom is going to be a childcare provider for her when needed. MOB states that because her mom is already connected with probation and is court ordered to drop urine weekly she feels like that will help her address any concerns that may arise. MOB states that she trusts her mom and the amount of time that she will be alone with baby or her other son is very limited. ? Drug Screens: ?No drug screens charted. ? Family/Social Stressors:? MOB reports that her first son's father is not a good person and there are time when he will threaten MOB if she will not let her see his son. MOB states that she has gone to the police several times to see if she can get a restraining order against him, but because she has never filed a police report they will not put a restraining order in place. MOB states that there have not been any problems for quite some time, but she still worries from time to time that he will cause drama. MOB states that she now knows that if he does anything else in a threatening manner the first thing she needs to do is call the police and get them involved. Becki utilized active listening and provided support. Support Systems: MOB states that KARLOS's mom (paternal grandma) is a good support person for her and FORyley. MOB states that there are four aunts who are also involved and great supports for the family. Depression/Shaken Baby/Safe Sleeping: Sw provided literature and education on signs and symptoms of baby blues and post depression. Sw provided MOB with list of counseling agencies and encouraged MOB to get connected to a mental health therapist during this period. Sw educated MOB to never shake a baby and the ABCs of safe sleep. MOB expressed understanding of both issues. Sw also encouraged MOB to educate her 15 month old to practice safe sleep habits, and to not allow him to put anything in the baby's sleep space with the baby. ASSESSMENT:?FIDEL was talkative during sw psychosocial assessment. There are several concerning issues such as maternal grandma's substance use history and former incarceration, and FIDEL is identifying her to be a child daycare worker provider when necessary. MOB mental health history is also a concern that she may experience depression a second time. The unhealthy relationship that she has with her first son's father is also a concerning topic. Sw provided education when applicable. FIDEL would benefit from ongoing support provided by medical staff during hospitalization. FIDEL would also benefit from getting connected to a mental health professional to support her and help her navigate some of these issues. PLAN:? Becki followed up with FIDEL and FOB to discuss identifying other childcare providers. FIDEL was receptive to that recommendation and states that when she calls [employer] to get patient added to her insurance she will ask them about financial assistance for childcare and ask for childcare providers that are close to her and provide services for toddlers and infants. FIDEL and becki also discussed MOB's plans moving forward should she hear from her first sons father. MOB states that her plan at this time is to contact the police immediately if he is threatening in any way. Sw supports this plan. ?No other services requested or indicated. Wendy Wells, PROMPT CARE RN, [employer]
[2022-11-07 09:25] VITALS: BP 116/73; PULSE 89; RESP 16; TEMP 36.5; O2SAT 98
[2022-11-07] MEDS: busPIRone 5 MG Tablet 10 MG PO (11:32)
[2022-11-07] MEDS: Prenatal Vits Tablet 1 TABLET PO (11:33)
[2022-11-07] MEDS: Famotidine 20 MG Tablet PO (11:33)
[2022-11-07 13:03] VITALS: BP 116/73; PULSE 89; RESP 16; TEMP 36.5; O2SAT 98
== END 2022-11-07 13:35 | disposition home or self-care (01) | DRG 560 ==
PROVIDERS: Obstetrics & Gynecology; Admitting Provider Advanced Practice Midwife; PCP Nurse Practitioner Family; Referring Provider Advanced Practice Midwife; Visit Provider Advanced Practice Midwife
DX: O99.214 Obesity complicating childbirth (principal); F32.A Depression, unspecified; F17.290 Nicotine dependence, other tobacco product, uncomplicated; F41.1 Generalized anxiety disorder; O99.334 Smoking (tobacco) complicating childbirth; E66.9 Obesity, unspecified; O99.344 Other mental disorders complicating childbirth; Z79.82 Long term (current) use of aspirin; Z79.899 Other long term (current) drug therapy; Z3A.39 39 weeks gestation of pregnancy; Z37.0 Single live birth; O69.81X0 Labor and delivery complicated by cord around neck, without compression, not applicable or unspecified
CPT/HCPCS: 59025; 59050; 85025; 86780; 86850; 86900; 86901; 99221; J7120; A4216; G0378

== ENCOUNTER 2025-03-20 11:13 | Emergency (ER) | payer MEDICAID, SELFPAY ==
[2025-03-20 11:15] VITALS: BP 123/84; PULSE 99; RESP 18; TEMP 37.1; O2SAT 98; BMI 38.9
--- NOTE | 2025-03-20 12:01 | US_ITS ---
PROCEDURE: TRANSVAGINAL W/PREG US 03/20/2025 REASON FOR EXAM: VAGINAL BLEEDING, HISTORY OF PILLS TECHNIQUE: Procedure Code: [id number] Modality: US Procedure: TRANSVAGINAL W/PREG US COMPARISON: None FINDINGS: Comments: LMP: January 20, 2025. Number of Gestational Sacs: No gestational sac is seen. Number of Fetuses: Not visualized. No pole or yolk sac is seen. Uterine Abnormalities: Maternal uterus is unremarkable. Ovaries / Adnexa: There is a 4.1 cm 3.6 cm 3.6 cm complex cystic structure with increased blood flow in the right adnexa. The right fallopian tube is distended. US/Transvaginal w/Preg US IMPRESSION: No intrauterine gestation is seen. 4.1 cm 3.6 cm 3.6 cm complex cystic structure with peripheral blood flow in the right ovary. Endometrium should be ruled out. Dilated right fallopian tube. Follow-up with serial beta HCG is recommended. Reading Location: [facility]
[2025-03-20] MEDS: 0.9% Normal Saline (1000mL) 1,000 ML 999 ML IV (12:16)
--- NOTE | 2025-03-20 12:18 | ED.RN ---
Assisted Dr Reid with pelvic exam.
--- NOTE | 2025-03-20 12:27 | EDS_ITS ---
HPI HPI - Female History of Present Illness Chief Complaint: Vag Bleeding Narrative Narrative: Chief complaint and HPI: 25-year-old female who is possibly presents for evaluation of vaginal spotting and concern for versus incomplete . Patient states her and her were recently split up in which she had a positive test. She states that the father was not her in which she elected to see [facility] for an . She states her last menstrual cycle was January 20. She was approximately 4 weeks when she took pills on 02/14 from [facility]. She states she had a transvaginal ultrasound that was negative at that time. Patient states she started bleeding on February 18 in which she bled for 2-1/2 weeks. 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 She was seen at [facility] where she had a beta-hCG done on 03/17 states it was 1467. Had another beta-hCG on 02/15 that was 1421. Patient states today she started having vaginal spotting. States she is due to start her menstrual period. [facility] told her to come to the ED to rule out ectopic . She denies any fever, chills, shortness of breath, chest pain, abdominal pain, vaginal discharge. Denies any concern for STIs. States she has been sexually active with her since the without protection. Review of systems: See HPI Medications: As listed on the chart Allergies: As listed on the chart PFSH: Per chart Vital signs: As listed on the chart. Reviewed. Physical exam: Gen: A&O x3, NAD Head: Normocephalic, atraumatic Eyes: No sclera icterus, conjunctiva clear ENT: Moist mucous membranes CV: RRR, no murmurs Resp: Lungs CTA BL, no w/r/c GI: Abd soft, non-distended, non-tender, no r/r/g Pelvic: Normal external genitalia. No lesions, masses, or rashes appreciated. No active vaginal bleeding or discharge noted. No drainage or bleeding noted from the cervix. Cervix is non-friable. No cervical motion tenderness appreciated. Musc: Full ROM, no deformity Skin: Warm, dry Psych: Cooperative, appropriate mood and affect [facility] Medical History (Updated 03/20/25 @ 15:[address] Mitch Donis, DO) Depression Anxiety History of anxiety History of depression Obesity affecting Home Medications Medication Instructions Recorded Last Taken Type lamotrigine 25 mg tablet 25 mg PO DAILY 03/20/2503/04 History Allergy/AdvReac Type Severity Reaction Status Date / Time No Known Allergies Allergy Verified 03/20/25 11:15 Family History no significant family his Social History Smoking Status: Current every day smoker tobacco type: e-cigarettes substance use type: does not use EXAM Physical Exam Const Vital Signs: 03/20/25 11:15 03/20/25 13:14 Temperature 98.8 F Temperature Source Oral Pulse Rate 99 78 Respiratory Rate 18 Blood Pressure 123/84 H 115/80 Blood Pressure Mean 97 91 Pulse Ox 98 Oxygen Delivery Method Room Air MDM MDM MDM Narrative Medical decision making narrative: 25-year-old female who is possibly presents for evaluation of vaginal spotting and concern for versus incomplete . See HPI. Differential diagnosis includes but is not limited to incomplete , , menstrual cycle, anemia. Patient offered STI testing but declined. Will obtain basic labs with transvaginal ultrasound and beta-hCG. CBC without leukocytosis or anemia. Platelets unremarkable. BMP unremarkable. Beta-hCG is 1304. This is downtrending from her previous labs. UA negative for blood or UTI. Transvaginal ultrasound shows no IUP. 4.1 cm x 3.6 cm complex cystic structure with peripheral blood flow in the right ovary. Endometrium should be ruled out. Dilated right fallopian tube. Given decrease in beta-hCG with ultrasound findings, I did reach out to patient's [employer] [employer]. I spoke with the on- call physician Dr. Jurado. Patient was discussed. She reviewed the labs as well as the ultrasound. Plan is to follow-up outpatient in their office. They will get a repeat beta-hCG on Thursday as well as repeat ultrasound. Strict return precautions. Patient confirmed understanding the plan. Patient able to discharge home. Impression: 1. Reported vaginal bleeding 2. Elevated hCG, early versus downtrending from previous 3. Right ovarian cyst 4. Right dilated fallopian tube Lab Data Labs: Laboratory Results - last 24 hr 03/20/25 12:20 WBC 7.0 RBC 4.26 Hgb 12.7 Hct 38.6 MCV 90.6 MCH 29.8 MCHC 32.9 RDW Std Deviation 43.0 RDW Coeff of [place] 13.1 Plt Count 270 MPV 10.4 Immature Gran % (Auto) 0.300 Neut % (Auto) 67.9 Lymph % (Auto) 24.5 [place] % (Auto) 4.6 Eos % (Auto) 2.1 Baso % (Auto) 0.6 Absolute Neuts (auto) 4.8 Absolute Lymphs (auto) 1.72 Nucleated RBC % 0 Sodium 140 Potassium 3.7 Chloride 105 Carbon Dioxide 23.7 Anion Gap 12 BUN 15 Creatinine 0.65 L Estim Creat Clear Calc 155.92 Est GFR (MDRD) Non-Af 126 BUN/Creatinine Ratio 22.4 H Glucose 81 Calcium 9.3 HCG, Quant 1304 H Urine Color Yellow Urine Clarity Cloudy Urine pH 6.0 Ur Specific [place] 1.025 Urine Protein 15 H Urine Glucose (UA) Normal Urine Ketones Negative Urine Occult Blood Negative Urine Nitrite Negative Urine Bilirubin Negative Urine Urobilinogen Normal Ur Leukocyte Esterase Negative Urine RBC 0-5 SEEN Urine WBC 0-5 SEEN Ur Squamous Epith Cells 0-5 SEEN Urine Bacteria 2+ Urine Mucus 2+ Radiography Diagnostic Testing: Clinical Impression(s) from Imaging Studies Obstetrics Ultrasound 03/20/25 12:01 IMPRESSION: No intrauterine gestation is seen. 4.1 cm 3.6 cm 3.6 cm complex cystic structure with peripheral blood flow in the right ovary. Endometrium should be ruled out. Dilated right fallopian tube. Follow-up with serial beta HCG is recommended. Reading Location: [id number] Discharge Plan Triage Chief Complaint: Vag Bleeding ED Provider: Mitch Donis Dx/Rx/DC Orders Clinical Impression: Vaginal bleeding Instructions: Vaginal Bleeding During Prescriptions: No Action lamotrigine 25 mg tablet 25 mg PO DAILY Primary Care Provider: Nat Ku Referrals: Kaila Jurado DO [Med Staff - Active Staff, Obstetrics-Gynecology (OBGYN)] - 3-5 Days Nat Ku, [employer] [Primary Care Provider, Internal Medicine] - 3-5 Days Activity Restrictions/Additional Instructions: Follow-up with [employer] [employer]. They will schedule you to have a repeat hCG on Thursday as well as an outpatient ultrasound in their office. Call to make an appointment. Return back to ED if symptoms change or worsen such as increased bleeding or abdominal pain. Print Language: Pashto Disposition Disposition: Home, Self Care
[2025-03-20 12:32] LABS: Hematocrit 38.6 % (37-47); Hemoglobin 12.7 g/dL (12.0-15.0); Immature Granulocytes Count 0.020 X10^3/uL (0.0-0.0); Mean Corp Hgb Conc 32.9 g/dL (32-36); Mean Corpuscular Volume 90.6 fL (81-99); Mean Platelet Vol. 10.4 fl (6.2-12.0); NRBC Flagged by Analyzer 0 % (0-5); Platelet Count 270 K/mm3 (150-450); RBC Distribution Width CV 13.1 % (11.6-14.6); RBC Distribution Width SD 43.0 fl (35.1-43.9); Red Blood Count 4.26 M/mm3 (4.2-5.4); White Blood Count 7.0 K/mm3 (4.4-11.0)
[2025-03-20 12:41] LABS: Color, Urine Yellow (Yellow); Glucose, Dipstick Normal (Normal); Ketone-Dipstick Negative (Negative); Leukocyte Esterase-Dipstick Negative /ul (Negative); Nitrite-Dipstick Negative (Negative); Occult Blood-Urine Negative /ul (Negative); Protein-Dipstick 15 mg/dl (Negative); Specific Gravity, Urine 1.025 (1.002-1.030); Urine Bilirubin Dipstick Negative (Negative)
[2025-03-20 12:49] LABS: Mucous, Urine 2+ /hpf (<or=2+); Red Blood Cells-Urine 0-5 SEEN /hpf (0-5); Squamous Epithelial Cells - UA 0-5 SEEN /hpf (5-10)
[2025-03-20 13:14] VITALS: BP 115/80; PULSE 78
[2025-03-20 13:32] LABS: Anion Gap 12 (5-15); BUN 15 mg/dL (4-19); BUN/Creat Ratio 22.4 RATIO (10-20); Calcium,Total 9.3 mg/dL (7.6-11.0); Carbon Dioxide 23.7 mmol/L (21.0-32.0); Chloride 105 mmol/L (98-108); Estimated Creatinine Clearance 155.92 ml/min (50-250); Glucose 81 mg/dL (70-99); Potassium 3.7 mmol/L (3.3-5.1)
[2025-03-20 13:35] LABS: hCG Titer Quant., Serum 1304 mIU/mL (<9 non-preg)
[2025-03-20 15:00] VITALS: BP 115/54; PULSE 79; RESP 16
[2025-03-20 15:38] VITALS: BP 115/54; PULSE 79; RESP 16; TEMP 37.1; O2SAT 98
== END 2025-03-20 15:43 | disposition home or self-care (01) ==
PROVIDERS: Emergency Provider Surgery; PCP Nurse Practitioner Family; Visit Provider Surgery
DX: O20.9 Hemorrhage in early pregnancy, unspecified (principal); N83.201 Unspecified ovarian cyst, right side; F17.290 Nicotine dependence, other tobacco product, uncomplicated; O99.331 Smoking (tobacco) complicating pregnancy, first trimester
CPT/HCPCS: 76817; 80048; 81001; 84702; 85025; 96360; 99283; A4216